=== PATIENT | female | born 1955 | race Caucasian/White ===

== ENCOUNTER → 2016-10-09 | Outpatient (CLI) | payer BC ==
[~2016-10-09] MED LIST: ASPIRIN PO; CANA1TAB3 PO; CHOLTAB3 PO; FOLI1POW10 PO; GLUC500C67 PO; HYDR-5688 PO; HYDROCONE PO; LOSA50TA6 PO; METH2.5T PO; MTH25 PO; OMEGCAP2 PO; SITA50TA5; SPIRPOW PO; VITA1TAB4 PO; [UNRECOGNIZED DRUG - CODE] PO; allegra PO
--- NOTE | 2016-10-10 12:46 | MAMMOGRAPHY REPORT ---
BILATERAL DIGITAL SCREENING MAMMOGRAM TOMOSYNTHESIS WITH CAD: 10/09/2016 CLINICAL HISTORY: Asymptomatic. Personal history of breast cancer. TECHNIQUE: Breast tomosynthesis in addition to standard 2D mammography was performed. Current study was also evaluated with a Computer Aided Detection (CAD) system. COMPARISON: Comparison is made to exams dated: 10/08/2015 mammogram, 10/04/2014 mammogram, 10/03/2013 mammogram, 10/01/2012 mammogram, 09/25/2011 mammogram, and 09/24/2010 mammogram - [facility]. BREAST COMPOSITION: The tissue of both breasts is heterogeneously dense, which may obscure small ma sses. FINDINGS: No suspicious masses, calcifications, or areas of architectural distortion are noted in e ither breast. There has been no significant interval change compared to prior exams. There are stab le postsurgical changes in the left breast from prior lumpectomy. Additionally, a linear scar marke r denotes a scar over the right upper outer breast. Scattered bilateral benign-appearing calcificat ions do not appear significantly changed. IMPRESSION: ACR BI-RADS CATEGORY 2: BENIGN There is no mammographic evidence of malignancy. A 1 year screening mammogram is recommended. The p atient will receive written notification of the results. Approximately 10% of breast cancers are not detected with mammography. A negative mammographic repor t should not delay biopsy if a clinically suggestive mass is present. Kray Muniz M.D. /:10/09/2016 16:46:22 Exhibit Display Representative: Braeden RENEE(Dean)([place]), [facility] letter sent: Normal 1/2 BI-RADS Code: ACR BI-RADS Category 2: Benign
== END | disposition home or self-care (01) ==
LOC: C.MAMM 16:09
PROVIDERS: ATTEND Nurse Practitioner
DX: Z12.31 Encounter for screening mammogram for malignant neoplasm of breast (principal); Z85.3 Personal history of malignant neoplasm of breast; Z08 Encounter for follow-up examination after completed treatment for malignant neoplasm

== ENCOUNTER → 2017-10-13 | Outpatient (CLI) | payer OTHER ==
--- NOTE | 2017-10-14 15:29 | MAMMOGRAPHY REPORT ---
BILATERAL DIGITAL SCREENING MAMMOGRAM TOMOSYNTHESIS WITH CAD: 10/13/2017 CLINICAL HISTORY: Asymptomatic. Personal history of breast cancer. TECHNIQUE: Breast tomosynthesis in addition to standard 2D mammography was performed. Current study was also evaluated with a Computer Aided Detection (CAD) system. COMPARISON: Comparison is made to exams dated: 10/09/2016 mammogram, 10/08/2015 mammogram, 10/04/2014 ma mmogram, 10/03/2013 mammogram, 10/01/2012 mammogram, and 09/25/2011 mammogram - [facility]. BREAST COMPOSITION: The tissue of both breasts is heterogeneously dense, which may obscure small mas ses. FINDINGS: There is evidence of prior surgery in the left breast, with expected focal architectural di stortion in the 9:00 versus central left breast. There are diffuse bilateral microcalcifications. A linear scar markers overlie the right breast as well. Stable nodular asymmetry in the medial supervisor ski production ior right breast on the CC view appears very similar when comparing to the 2008, 2010 and 2012 mammog jeremías, suggesting normal overlapping tissue. No new suspicious mass, architectural distortion or clus ter of microcalcifications is seen. IMPRESSION: ACR BI-RADS CATEGORY 1: NEGATIVE There is no mammographic evidence of malignancy. A 1 year screening mammogram is recommended. The pa tient will receive written notification of the results. Approximately 10% of breast cancers are not detected with mammography. A negative mammographic report should not delay biopsy if a clinically suggestive mass is present. Sheyla Melo M.D. ay/:10/13/2017 16:42:31 Pharmacy Consultant: Amy SANTOS)([place]), [facility] letter sent: Normal 1/2 BI-RADS Code: ACR BI-RADS Category 1: Negative
== END | disposition home or self-care (01) ==
LOC: C.MAMM 10:36
PROVIDERS: ATTEND Obstetrics & Gynecology
DX: Z12.31 Encounter for screening mammogram for malignant neoplasm of breast (principal)

== ENCOUNTER → 2017-11-23 | Outpatient (CLI) | payer OTHER ==
--- NOTE | 2017-11-23 09:30 | DIAGNOSTIC IMAGING REPORT ---
BILIARY ULTRASOUND CLINICAL HISTORY: Elevated LFTs COMPARISON STUDY: May 22, 2016 FINDINGS: The pancreas appears sonographically normal. The gallbladder appears sonographically normal. There is no ductal dilatation. The common bile duct measures 5 mm. There is no right-sided hydronephrosis. No hepatic masses are visualized. There is mild increase in hepatic echogenicity. IMPRESSION: 1. Mild increase in hepatic echogenicity, nonspecific finding most often seen in hepatic steatosis. 2. Ultrasonographically normal gallbladder. No evidence of ductal dilatation. Electronically signed by: Joshua Beltrán M.D. 11/23/2017 9:28 AM Dictated Date/Time: 11/23/2017 9:27 AM
== END | disposition home or self-care (01) ==
LOC: C.ULTR 08:59
DX: R79.89 Other specified abnormal findings of blood chemistry (principal)

== ENCOUNTER → 2018-02-01 | Day surgery (SDC) | payer OTHER ==
[2018-01-26 09:03] VITALS: Ht 162.6 cm; Wt 107.7 kg
[~2018-02-01] VITALS: Ht 162.6 cm; Wt 107.7 kg
[~2018-02-01] MED LIST changes: -ASPIRIN PO; +FLUT27.53; -FOLI1POW10 PO; -GLUC500C67 PO; -HYDR-5688 PO; -HYDROCONE PO; +LIDOCAINE HCL 2% 2 ML VIAL (20MG/ML) ONE; -METH2.5T PO; -MTH25 PO; +PROPOFOL IV EMULSION 10 MG/ML 20 ML VIAL ONE; -SITA50TA5; +SITA50TA5 PO; +SODIUM CHLORIDE 0.9% 500ML 500 ML IV ONE; -[UNRECOGNIZED DRUG - CODE] PO
--- NOTE | 2018-02-01 13:25 | Endo History and Physical ---
History & Physical Date of Service: Feb 01, 2018. Chief Complaint: variceal screening; hx colonic polyps Referring Physician: History of Present Illness EGD for variceal screening'; colonoscopy for prior hx polyps Past Medical History Diabetes, Arthritis, Fractures, Cancer, High Cholesterol, Sleep Apnea, Hypertension Past Surgical History Hx Cardiac Surgery: No Hx Internal Defibrillator: No Hx Pacemaker: No Hx Abdominal Surgery: Yes (3 LIVER BIOPSIES) Hx of Implantable Prosthesis: No Hx Post-Op Nausea and Vomiting: Yes Hx Cancer Surgery: Yes (L BREAST NIPPLE/DUCT REMOVAL) Hx Thoracic Surgery: No Hx Orthopedic: Yes (L ARM TENDON REPAIR, R ELBOW ) Hx Urinary Tract Surgery: No Family History Colon CA, Polyp, IBD Social History Smoking Status: Never Smoker Hx Substance Use: No Hx Alcohol Use: No Allergies Coded Allergies: Doxycycline (Verified Allergy, Mild, RASH, 02/01/18) Hydrochlorothiazide (Verified Allergy, Mild, RASH, 02/01/18) Losartan (Verified Allergy, Mild, RASH, 02/01/18) Sulfamethoxazole w/Trimethoprim (Verified Allergy, Mild, GI SYMPTOMS, 02/01) Current Medications Reported Home Medications Medications Dose Route/Sig Max Daily Dose Days Date Category Flonase Sensimist (Fluticasone Furoate) 27.5 Mcg/[place] Angelique 2 [place] NA DAILY 01/26/18 Reported Janumet (Sitagliptin-Metformin Hcl) 1 Tab Tab 1 Tab PO BID 30 01/26/18 Reported Invokana (Canagliflozin) 300 Mg Tab 1 Tab PO DAILY 01/31/16 Reported Vitamin D (Ergocalciferol) 400 Inter.unit Tab 400 Inter.unit PO DAILY 06/20/14 Reported [jason] 180 Mg PO DAILY 04/10/14 Reported Vitamin E 400 Unit Tab 400 Inter.unit PO DAILY 04/14/13 Reported Spironolactone 1 Pow Pow 50 Mg PO BID 04/14/13 Reported Fish Oil ([place]-3 Fatty Acids) 1 Cap Cap 1 Cap PO DAILY 04/14/13 Reported Cozaar (Losartan Potassium) 50 Mg Tab 50 Mg PO DAILY 04/14/13 Reported Vital Signs Weight (Kilograms): 107.73 Height (Feet): 5 Height (Inches): 4 Date Time Temp Pulse Resp B/P (MAP) Pulse Ox O2 Delivery O2 Flow Rate FiO2 02/01/18 13:20 36.9 104 20 145/96 (112) 93 Room Air Physical Exam General Appearance: WD/WN, no apparent distress Respiratory/Chest: Auscultation: breath sounds normal Cardiovascular: Heart Auscultation: RRR Abdomen: Bowel Sounds: normal Inspection & Palpation: soft, non-distended, no tenderness, guarding & rebound Assessment and Plan EGD and colonoscopy today
--- NOTE | 2018-02-01 14:22 | Discharge Instructions ---
Endoscopy Patient Instructions Date / Procedure(s) Performed Feb 01, 2018. Colonoscopy, EGD Allergy Information Coded Allergies: Doxycycline (Verified Allergy, Mild, RASH, 02/01/18) Hydrochlorothiazide (Verified Allergy, Mild, RASH, 02/01/18) Losartan (Verified Allergy, Mild, RASH, 02/01/18) Sulfamethoxazole w/Trimethoprim (Verified Allergy, Mild, GI SYMPTOMS, 02/01) Discharge Date / Findings Feb 01, 2018. Reported Home Medications Medications Dose Route/Sig Max Daily Dose Days Date Category Flonase Sensimist (Fluticasone Furoate) 27.5 Mcg/[place] Angelique 2 [place] NA DAILY 01/26/18 Reported Janumet (Sitagliptin-Metformin Hcl) 1 Tab Tab 1 Tab PO BID 30 01/26/18 Reported Invokana (Canagliflozin) 300 Mg Tab 1 Tab PO DAILY 01/31/16 Reported Vitamin D (Ergocalciferol) 400 Inter.unit Tab 400 Inter.unit PO DAILY 06/20/14 Reported [jason] 180 Mg PO DAILY 04/10/14 Reported Vitamin E 400 Unit Tab 400 Inter.unit PO DAILY 04/14/13 Reported Spironolactone 1 Pow Pow 50 Mg PO BID 04/14/13 Reported Fish Oil ([place]-3 Fatty Acids) 1 Cap Cap 1 Cap PO DAILY 04/14/13 Reported Cozaar (Losartan Potassium) 50 Mg Tab 50 Mg PO DAILY 04/14/13 Reported Prilosec 40mg daily 1/2 hour before breakfast Medication Instructions Restart Stopped Medication(s): Reported Home Medications Medications Dose Route/Sig Max Daily Dose Days Date Category Flonase Sensimist (Fluticasone Furoate) 27.5 Mcg/[place] Angelique 2 [place] NA DAILY 01/26/18 Reported Janumet (Sitagliptin-Metformin Hcl) 1 Tab Tab 1 Tab PO BID 30 01/26/18 Reported Invokana (Canagliflozin) 300 Mg Tab 1 Tab PO DAILY 01/31/16 Reported Vitamin D (Ergocalciferol) 400 Inter.unit Tab 400 Inter.unit PO DAILY 06/20/14 Reported [jason] 180 Mg PO DAILY 04/10/14 Reported Vitamin E 400 Unit Tab 400 Inter.unit PO DAILY 04/14/13 Reported Spironolactone 1 Pow Pow 50 Mg PO BID 04/14/13 Reported Fish Oil ([place]-3 Fatty Acids) 1 Cap Cap 1 Cap PO DAILY 04/14/13 Reported Cozaar (Losartan Potassium) 50 Mg Tab 50 Mg PO DAILY 04/14/13 Reported Prilosec 40mg daily 1/2 hour before breakfast Reported Home Medications Medications Dose Route/Sig Max Daily Dose Days Date Category Flonase Sensimist (Fluticasone Furoate) 27.5 Mcg/[place] Angelique 2 [place] NA DAILY 01/26/18 Reported Janumet (Sitagliptin-Metformin Hcl) 1 Tab Tab 1 Tab PO BID 30 01/26/18 Reported Invokana (Canagliflozin) 300 Mg Tab 1 Tab PO DAILY 01/31/16 Reported Vitamin D (Ergocalciferol) 400 Inter.unit Tab 400 Inter.unit PO DAILY 06/20/14 Reported [jason] 180 Mg PO DAILY 04/10/14 Reported Vitamin E 400 Unit Tab 400 Inter.unit PO DAILY 04/14/13 Reported Spironolactone 1 Pow Pow 50 Mg PO BID 04/14/13 Reported Fish Oil ([place]odd-3 Fatty Acids) 1 Cap Cap 1 Cap PO DAILY 04/14/13 Reported Cozaar (Losartan Potassium) 50 Mg Tab 50 Mg PO DAILY 04/14/13 Reported Prilosec 40mg daily 1/2 hour before breakfast Provider Instructions Activity Restrictions - No exercising or heavy lifting for 24 hours. - Do not drink alcohol the day of the procedure. - Do not drive a car or operate machinery until the day after the procedure. - Do not make any important decisions or sign important papers in 24 hours after the procedure. Following Day: - Return to full activity which may include returning to work/school. Diet Start your diet with liquids and light foods (jello, soup, juice, toast). Then eat your usual diet if not nauseated. Treatment For Common After Affects For mild abdominal pain, bloating, or excessive gas: - Rest - Eat lightly - Lie on right side Follow-Up Information Follow-up with Dr. Soriano as scheduled Anesthesia Information What You Should Know You have had a procedure that required some medicine to reduce anxiety and discomfort. This treatment is called moderate sedation. After receiving the treatment, you may be sleepy, but you will be able to breathe on your own. The effects of the treatment may last for several hours. Follow these instructions along with Activity/Diet recommendations noted above: * Do NOT do anything where dizziness or clumsiness would be dangerous. * Rest quietly at home today, then you can be up and about tomorrow. * Have a responsible person stay with you the rest of today. * You may have had an I.V. today. If so, you may take the dressing off later today. Recommendations Call your doctor if: * Trouble breathing * Continuous vomiting for more than 24 hours * Temperature above 101 degrees * Severe abdominal pain or bloating * Pain not relieved by pain medicine ordered * There is increased drainage or redness from any incision * A large amount of rectal bleeding greater than 2-3 tablespoons. (If you had a polyp/s removed or have hemorrhoids, a small amount of blood - from the rectum is to be expected.) * You have any unanswered questions or concerns. IN THE EVENT OF A SERIOUS EMERGENCY, GO TO THE NEAREST EMERGENCY ROOM Your discharge instructions were prepared by provider Ender Mckeon. Patient Instructions Signature Page Lucy Yanez Patient (or Guardian) Signature/Date: I have read and understand the instructions given to me by my caregivers. Caregiver/RN/Doctor Signature/Date: The above-named patient and/or guardian has received patient instructions on this date. + Original Patient Signature Page (only) stays with chart. Please make copy for patient.
--- NOTE | 2018-02-01 14:31 | GI REPORT ---
Patient Name: Lucy Yanez Procedure Date: 02/01/2018 1:35 PM Date of : 1955 Admit Type: Outpatient Age: 62 Gender: Female Attending MD: Ender Mckeon MD Procedure: Colonoscopy Providers: Ender Mckeon MD Referring MD: Ender Mckeon MD Indications: High risk colon cancer surveillance: Personal history of colonic polyps Medicines: Propofol per Anesthesia Complications: No immediate complications. Estimated blood loss: None. Estimated Blood Loss: Estimated blood loss: none. Procedure: Pre-Anesthesia Assessment: - Prior to the procedure, a History and Physical was performed, and patient medications and allergies were reviewed. The patient's tolerance of previous anesthesia was also reviewed. The risks and benefits of the procedure and the sedation options and risks were discussed with the patient. All questions were answered, and informed consent was obtained. Prior Anticoagulants: The patient has taken no previous anticoagulant or antiplatelet agents. ASA Grade Assessment: III - A patient with severe systemic disease. After reviewing the risks and benefits, the patient was deemed in satisfactory condition to undergo the procedure. After I obtained informed consent, the scope was passed under direct vision. Throughout the procedure, the patient's blood pressure, pulse, and oxygen saturations were monitored continuously. The scope was introduced through the anus and advanced to the cecum, identified by appendiceal orifice and ileocecal valve. The colonoscopy was performed without difficulty. The patient tolerated the procedure well. The quality of the bowel preparation was good. Findings: The perianal and digital rectal examinations were normal. Pertinent negatives include normal sphincter tone, no palpable rectal lesions and no anal lesion or abnormality was detected. A few small-mouthed diverticula were found in the sigmoid colon. The exam was otherwise without abnormality. Non-bleeding internal hemorrhoids were found during retroflexion. The hemorrhoids were mild. Impression: - Diverticulosis in the sigmoid colon. - The examination was otherwise normal. - Non-bleeding internal hemorrhoids. - No specimens collected. Recommendation: - Repeat colonoscopy in 5 years for surveillance. - Return to referring physician as previously scheduled. MD Ender Ngo MD 02/01/2018 2:31:41 PM This report has been signed electronically. Note Initiated On: 02/01/2018 1:35 PM Number of Addenda: 0 I attest to the content of the Intraoperative Record and orders documented therein, exceptions below {[id number]}
[2018-02-01 14:35] VITALS: BP 124/77; PULSE 85; O2SAT 96
--- NOTE | 2018-02-01 14:37 | GI REPORT ---
Patient Name: Lucy Yanez Procedure Date: 02/01/2018 1:32 PM Date of : 1955 Admit Type: Outpatient Age: 62 Gender: Female Attending MD: Ender Mckeon MD Procedure: Upper GI endoscopy Providers: Ender Mckeon MD Referring MD: Ender Mckeon MD Indications: Abnormal ultrasound of the GI tract Medicines: Propofol per Anesthesia Complications: No immediate complications. Estimated blood loss: None. Estimated Blood Loss: Estimated blood loss: none. Procedure: Pre-Anesthesia Assessment: - Prior to the procedure, a History and Physical was performed, and patient medications and allergies were reviewed. The patient's tolerance of previous anesthesia was also reviewed. The risks and benefits of the procedure and the sedation options and risks were discussed with the patient. All questions were answered, and informed consent was obtained. Prior Anticoagulants: The patient has taken no previous anticoagulant or antiplatelet agents. ASA Grade Assessment: III - A patient with severe systemic disease. After reviewing the risks and benefits, the patient was deemed in satisfactory condition to undergo the procedure. After obtaining informed consent, the endoscope was passed under direct vision. Throughout the procedure, the patient's blood pressure, pulse, and oxygen saturations were monitored continuously. The scope was introduced through the mouth, and advanced to the third part of duodenum. The upper GI endoscopy was accomplished without difficulty. The patient tolerated the procedure well. Findings: The upper third of the esophagus and middle third of the esophagus were normal. LA Grade B (one or more mucosal breaks greater than 5 mm, not extending between the tops of two mucosal folds) esophagitis with no bleeding was found 39 to 40 cm from the incisors. Mild portal hypertensive gastropathy was found in the gastric fundus and in the gastric body. Retained gastric contents are not identified on this exam. The exam of the stomach was otherwise normal. The examined duodenum was normal. The cardia and gastric fundus were normal on retroflexion. Impression: - Normal upper third of esophagus and middle third of esophagus. - LA Grade B reflux esophagitis. - Portal hypertensive gastropathy. - Normal examined duodenum. - No specimens collected. Recommendation: - Discharge patient to home (ambulatory). - Advance diet as tolerated. - Continue present medications. - Repeat upper endoscopy in 2 years for surveillance. - Return to referring physician as previously scheduled. MD Ender Ngo MD 02/01/2018 2:36:57 PM This report has been signed electronically. Note Initiated On: 02/01/2018 1:32 PM Number of Addenda: 0 I attest to the content of the Intraoperative Record and orders documented therein, exceptions below {[id number]}
--- NOTE | 2018-02-01 14:42 | Anesthesiology Progress Note ---
Anesthesia Post Op Note Date & Time Feb 01, 2018 at 14:42 Vital Signs Pain Intensity: 0 Vital Signs Past 12 Hours Date Time Temp Pulse Resp B/P (MAP) Pulse Ox O2 Delivery O2 Flow Rate FiO2 02/01/18 14:35 85 20 124/77 (93) 96 Room Air 02/01/18 14:26 92 20 100/62 (75) 96 Room Air 02/01/18 14:11 100 16 102/65 (77) 95 Room Air 02/01/18 13:20 36.9 104 20 145/96 (112) 93 Room Air Notes Mental Status: alert / awake / arousable, participated in evaluation Pt Amnestic to Procedure: Yes Nausea / Vomiting: adequately controlled Pain: adequately controlled Airway Patency, RR, SpO2: stable & adequate BP & HR: stable & adequate Hydration State: stable & adequate Anesthetic Complications: no major complications apparent
== END | disposition home or self-care (01) ==
LOC: C.GI 13:03
PROVIDERS: ATTEND Internal Medicine Gastroenterology
DX: Z12.11 Encounter for screening for malignant neoplasm of colon (principal); K57.30 Diverticulosis of large intestine without perforation or abscess without bleeding; K64.8 Other hemorrhoids; K31.89 Other diseases of stomach and duodenum; K21.0 Gastro-esophageal reflux disease with esophagitis; Z88.1 Allergy status to other antibiotic agents; Z88.2 Allergy status to sulfonamides; Z86.010 Personal history of colon polyps; Z98.890 Other specified postprocedural states; G47.33 Obstructive sleep apnea (adult) (pediatric); Z80.0 Family history of malignant neoplasm of digestive organs